=== PATIENT | female | born 1980 ===

== ENCOUNTER 2018-09-24 17:57 | Emergency (ER) | payer BC ==
--- NOTE | 2018-09-24 18:21 | UC ---
Lower Extremity/Ankle HPI - HPI Summary HPI Summary: 38 yo female presents with RIGHT calf bruise. She tells me that she has a hx of b/l varicose veins with retrograde flow L>R. 2 days ago she noticed a bruise with pain and swelling to her right calf. She does not recall an injury. Her family told her that she should be concerned about a blood clot as pt has a family history of clotting disorders. She has had no recent illness, recent travel, no OBC, no smoking history, no injury to the area. Denies SOB or chest pain. - History of Current Complaint Chief Complaint: UCLowerExtremity Stated Complaint: SOFT TISSUE Time Seen by Provider: 09/24/18 18:21 Hx Obtained From: Patient Hx Last Menstrual Period: 2 weeks ago Onset/Duration: Sudden Onset Severity Initially: Moderate Severity Currently: Mild Pain Intensity: 3 Pain Scale Used: 0-10 Numeric - Allergies/Home Medications Allergies/Adverse Reactions: Allergies Allergy/AdvReac Type Severity Reaction Status Date / Time Penicillins Allergy Intermediate Rash Verified 09/24/18 18:20 Home Medications: Home Medications NK [No Home Medications Reported] 09/24/18 [History Confirmed 09/24/18] PMH/Surg Hx/FS Hx/Imm Hx - Additional Past Medical History Additional PMH: None - Surgical History Surgical History: Yes Surgery Procedure, Year, and Place: x 1. D&C after 1st - Family History Known Family History: Positive: Non-Contributory - Social History Occupation: Employed Full-time Lives: With Family Alcohol Use: None Substance Use Type: None Smoking Status (MU): Former Smoker Review of Systems All Other Systems Reviewed And Are Negative: Yes Constitutional: Positive: Negative Skin: Positive: Bruising - Right calf Respiratory: Positive: Negative Cardiovascular: Positive: Negative Neurovascular: Positive: Negative Musculoskeletal: Positive: Negative Neurological: Positive: Negative Psychological: Positive: Negative Physical Exam - Summary Physical Exam Summary: GENERAL: NAD. WDWN. No pain distress. SKIN: No rashes, sores, lesions, or open wounds. NECK: Supple. Nontender. No lymphadenopathy. CHEST: CTAB. No r/r/w. No accessory muscle use. Breathing comfortably and in no distress. CV: RRR. Without m/r/g. Pulses intact. Cap refill <2seconds MSK: RIGHT CALF: 4.0cm diameter of ecchymosis and mild tenderness. No palpable mass. Soft and without significant edema . NEURO: Alert. PSYCH: Age appropriate behavior. Triage Information Reviewed: Yes Vital Signs: Initial Vital Signs Temp 99 F 09/24/18 18:13 Pulse 76 09/24/18 18:13 Resp 16 09/24/18 18:13 BP 117/82 09/24/18 18:13 Pulse Ox 100 09/24/18 18:13 Vital Signs Reviewed: Yes Lower Extremity Course/Dx - Course Course Of Treatment: Suspect a rupture of a varicose vein or a hematoma/contusion to the area. Given pt's family history of blood clots an ultrasound of the leg was obtained today. US: IMPRESSION: No acute findings. No evidence of deep vein thrombosis. Discussed results with pt and advised to RICE and suspect bruise will heal with time and appropriate rest. - Differential Dx/Diagnosis Provider Diagnosis: Hematoma Discharge - Sign-Out/Discharge Documenting (check all that apply): Patient Departure All imaging exams completed and their final reports reviewed: Yes - Discharge Plan Condition: Stable Disposition: HOME Patient Education Materials: Contusion in Adults (ED), Hematoma (ED) Referrals: Giselle Mack MD [Primary Care Provider] - Additional Instructions: If you develop a fever, shortness of breath, chest pain, new or worsening symptoms - please call your PCP or go to the ED immediately. Apply ice to your leg to decrease pain and swelling. I suspect this is a bruise from a ruptured varicose vein and will improve with rest and time. There was no blood clot on the ultrasound today. - Billing Disposition and Condition Condition: STABLE Disposition: Home - Attestation Statements Provider Attestation: Per institutional requirements, I have reviewed the chart, however, I was not consulted specifically or made aware of this patient by the midlevel provider. I did not personally evaluate, interact with , or disposition this patient.
== END 2018-09-24 19:15 | disposition home or self-care (01) ==
LOC: UCEAST 17:57
DX: S80.11XA Contusion of right lower leg, initial encounter (principal); X58.XXXA Exposure to other specified factors, initial encounter; Y92.9 Unspecified place or not applicable; Z87.891 Personal history of nicotine dependence; Z88.0 Allergy status to penicillin
CPT/HCPCS: 99201; G0463